=== PATIENT | female | born 1980 | race Asian ===

== ENCOUNTER 2017-12-30 06:42 | Inpatient (IN) | payer OTHER ==
[~2017-12-30 06:42] MED LIST: SOD CHLORIDE 0.9% 1,000 ML IV
[2017-12-30] MEDS ORDERED: ACETAMINOPHEN 1000 MG/100 ML IVPB (07:00)
[2017-12-30] MEDS ORDERED: GENTAMICIN 80 MG INJ (07:08)
[2017-12-30] MEDS ORDERED: BUPIVACAINE LIPOSOME/PF 266 MG/20 ML VIAL INFIL (07:30)
[2017-12-30] MEDS ORDERED: MIDAZOLAM 1 MG/ML 2 ML INJ (07:41)
[2017-12-30] MEDS: LACTATED RINGER'S 1,000 ML IV ×2 (08:08→21:10)
[2017-12-30] MEDS ORDERED: PHENYLephrine (100 MCG/ML) 5ML SYG (08:26)
[2017-12-30] MEDS ORDERED: CEFOTAXIME 1 GM/50 ML (PMX) 50 ML IVPB (08:30)
[2017-12-30] MEDS: POLYMYXIN/BACITRACIN 1L IRRIG (09:01)
[2017-12-30] MEDS ORDERED: morphine 10 MG INJ (09:22)
[2017-12-30] MEDS ORDERED: DEXAMETHASONE 4 MG/ML 1 ML INJ (09:23)
[2017-12-30] MEDS ORDERED: ONDANSETRON 4 MG INJ (10:57)
[2017-12-30] MEDS ORDERED: SUGAMMADEX SODIUM 200 MG/2 ML VIAL IV (10:59)
[2017-12-30] MEDS ORDERED: CEFAZOLIN 1 GM INJ (11:15)
[2017-12-30] MEDS ORDERED: PROPOFOL 100 ML (11:15)
[2017-12-30] MEDS ORDERED: ROCURONIUM 50 MG INJ (11:15)
[2017-12-30] MEDS ORDERED: KETOROLAC 30 MG INJ (11:19)
[2017-12-30] MEDS ORDERED: EPHEDrine SULFATE 50 MG/5 ML SYG IV (11:30)
[2017-12-30] MEDS ORDERED: DIPHENHYDRAMINE 50 MG INJ IV (11:30)
[2017-12-30] MEDS ORDERED: ALBUTEROL 0.083% (NEB) 2.5 MG/3 ML AMP HHN (11:30)
[2017-12-30] MEDS ORDERED: LABETALOL HCL 20MG INJ IV (11:30)
[2017-12-30] MEDS ORDERED: KETOROLAC 30 MG INJ IV (11:30)
[2017-12-30] MEDS ORDERED: morphine (1 MG/ML) 10ML SYRINGE IV ×2 (11:30)
[2017-12-30] MEDS ORDERED: METOCLOPRAMIDE 10 MG INJ IV (11:30)
[2017-12-30] MEDS: NITROGLYCERIN 2% 1 GM OINT PKT TD ×2 (11:30→11:31)
[2017-12-30] MEDS ORDERED: FENTAnyl 50 MCG/ML VIAL IV ×2 (11:30)
[2017-12-30] MEDS ORDERED: hydrALAzine 20 MG INJ IV (11:30)
[2017-12-30] MEDS: MEPERIDINE 25 MG INJ IV (12:03)
[2017-12-30] MEDS: FENTAnyl 50 MCG/ML VIAL IV ×2 (12:08→12:20)
[2017-12-30] MEDS: ONDANSETRON 4 MG INJ IV ×4 (12:44→21:10)
[2017-12-30] MEDS: morphine (1 MG/ML) 10ML SYRINGE IV (12:45)
[2017-12-30] MEDS ORDERED: VITAMIN A & D 5 GM OINT PACKET TOP (13:46)
[2017-12-30] MEDS: CEFAZOLIN 1 GM/50 ML (PMX) 50 ML IVPB ×2 (13:52→21:26)
[2017-12-30] MEDS: morphine 2 MG INJ IV ×3 (13:53→21:10)
[2017-12-30] MEDS: HYDROCODONE/APAP (10/325) TAB PO (22:15)
[2017-12-31] MEDS: LACTATED RINGER'S 1,000 ML IV ×2 (04:08→14:08)
[2017-12-31] MEDS: CEFAZOLIN 1 GM/50 ML (PMX) 50 ML IVPB ×2 (05:19→14:08)
[2017-12-31] MEDS: HYDROCODONE/APAP (10/325) TAB PO ×4 (05:24→18:39)
[2017-12-31] MEDS: ENOXAPARIN 40 MG/0.4 ML SYG SC (07:21)
== END 2017-12-31 20:15 | disposition home or self-care (01) | DRG 585 ==
LOC: REC 06:42 → MS1 13:15
PROC: 0HTV0ZZ Resection of Bilateral Breast, Open Approach (ICD-10-PCS; principal; 2017-12-30 07:30)
PROC: 0HHV0NZ Insertion of Tissue Expander into Bilateral Breast, Open Approach (ICD-10-PCS; 2017-12-30 07:30)
DX: Z40.01 Encounter for prophylactic removal of breast (principal); Z85.3 Personal history of malignant neoplasm of breast; Z86.711 Personal history of pulmonary embolism; Z15.01 Genetic susceptibility to malignant neoplasm of breast
CPT/HCPCS: 84703; 88307; 93005

== ENCOUNTER 2018-12-29 07:06 | Day surgery (SDC) | payer OTHER ==
[~2018-12-29 07:06] MED LIST changes: +LIDOCAINE 2% (SDV) 5 ML INJ; -SOD CHLORIDE 0.9% 1,000 ML IV
[2018-12-29] MEDS ORDERED: morphine 2 MG INJ IV (10:00)
[2018-12-29] MEDS ORDERED: HYDROCODONE/APAP (5/325) TAB PO (10:00)
[2018-12-29] MEDS ORDERED: PROPOFOL 100 ML (10:12)
[2018-12-29] MEDS ORDERED: CEFAZOLIN 1 GM INJ (10:23)
[2018-12-29] MEDS ORDERED: ROCURONIUM 50 MG INJ (10:23)
[2018-12-29] MEDS ORDERED: DEXAMETHASONE 4 MG/ML 5 ML INJ (10:24)
[2018-12-29] MEDS ORDERED: ONDANSETRON 4 MG INJ (10:31)
[2018-12-29] MEDS: BUPIVACAINE LIPOSOME/PF 266 MG/20 ML VIAL INFIL (10:31)
[2018-12-29] MEDS: EPINEPHrine 1 MG INJ (10:55)
[2018-12-29] MEDS: GENTAMICIN 80 MG INJ (10:57)
[2018-12-29] MEDS: POLYMYXIN/BACITRACIN 1L IRRIG (10:58)
[2018-12-29] MEDS ORDERED: GLYCOPYRROLATE 0.4 MG INJ ×2 (11:54→12:06)
[2018-12-29] MEDS ORDERED: NEOSTIGMINE 10 MG INJ ×2 (11:54→12:06)
[2018-12-29] MEDS ORDERED: MEPERIDINE 25 MG INJ (12:13)
[2018-12-29] MEDS: MEPERIDINE 25 MG INJ IV (12:29)
[2018-12-29] MEDS ORDERED: DIPHENHYDRAMINE 50 MG INJ IV (12:30)
[2018-12-29] MEDS ORDERED: LABETALOL HCL 20MG INJ IV (12:30)
[2018-12-29] MEDS ORDERED: OXYCODONE/ACETAMINOPHEN (5/325) TAB PO (12:30)
[2018-12-29] MEDS ORDERED: FENTAnyl 50 MCG/ML VIAL IV ×3 (12:30)
[2018-12-29] MEDS ORDERED: HYDROmorphONE 1 MG/5 ML IV SYRINGE IV ×3 (12:30)
[2018-12-29] MEDS ORDERED: ONDANSETRON 4 MG INJ IV (12:30)
[2018-12-29] MEDS ORDERED: EPHEDrine SULFATE 50 MG/5 ML SYG IV (12:30)
[2018-12-29] MEDS ORDERED: hydrALAzine 20 MG INJ IV (12:30)
[2018-12-29] MEDS ORDERED: ALBUTEROL 0.083% (NEB) 2.5 MG/3 ML AMP HHN (12:30)
[2018-12-29] MEDS ORDERED: METOCLOPRAMIDE 10 MG INJ IV (12:30)
[2018-12-29] MEDS ORDERED: ACETAMINOPHEN 325 MG TAB PO (12:30)
[2018-12-29] MEDS: ONDANSETRON 4 MG INJ IV (12:54)
[2018-12-29] MEDS: KETOROLAC 30 MG INJ IV (12:54)
[2018-12-29] MEDS: OXYCODONE/ACETAMINOPHEN (5/325) TAB PO (12:54)
== END 2018-12-29 15:00 | disposition home or self-care (01) ==
LOC: SDS 07:06
DX: N65.1 Disproportion of reconstructed breast (principal); Z85.3 Personal history of malignant neoplasm of breast
CPT/HCPCS: 11970; 88300